=== PATIENT | male | born 1995 | race Caucasian/White ===

== ENCOUNTER 2024-08-15 17:51 | Emergency (ER) | payer BC, SELFPAY ==
--- NOTE | ~2024-08-15 | XR_ITS ---
CLINICAL HISTORY: shortness of breath 2 view chest x-ray Comparison: None provided Findings: Mild diffuse interstitial prominence in both lungs may represent pulmonary vascular congestion/ fluid overload. No focal consolidation, pleural effusion or pneumothorax. Heart size is normal. No acute fracture. IMPRESSION: Mild diffuse interstitial prominence in both lungs may represent pulmonary vascular congestion/ fluid overload. This document has been electronically signed by: Joya Daugherty MD on 08/15/2024 19:45:43
--- NOTE | ~2024-08-15 | CT_ITS ---
CLINICAL HISTORY: TAchy, SOB, recent scuba diving and flying CT angiography chest with contrast. 3D Postprocessing. Comparison: CT/SR - CT ABDOMEN PELVIS W IV CON - 08/16/24 01:17 EDT Findings: The heart size is normal. RV/LV ratio is normal. Unremarkable thoracic aorta and great vessels. No aneurysm. No acute pulmonary embolus. The visualized thyroid and mediastinum are unremarkable. Mild dependent atelectasis at the lung bases. No consolidation, effusion, or pneumothorax. Abdominal findings are discussed on the comparison. No acute fractures. No intravascular gas. Vacuum joint phenomenon left shoulder, expected with the patient's positioning. IMPRESSION: 1. No acute pulmonary embolus. 2. There are no findings that would be specific to decompression sickness on CT. This document has been electronically signed by: Nicole Polo MD on 08/16/2024 03:07:48
--- NOTE | ~2024-08-15 | CT_ITS ---
CLINICAL HISTORY: abdominal pain, diarreha, diffuse joint pain CT abdomen and pelvis with contrast Comparison: None provided Findings: Linear atelectasis at the lung bases. No consolidation or effusion. Hypodense liver. Right liver 21 cm. No portal venous gas. Pancolonic wall thickening. Mild pericolonic fat stranding most evident at the ascending colon. No pneumoperitoneum or pneumatosis. Mesenteric vessels patent. No intravascular gas. Normal appendix. Unremarkable urinary bladder. No ascites or hernia. The bones are intact. No gas in the hip joints or facet joints. IMPRESSION: 1. Lutz colitis of uncertain etiology. 2. Fatty hepatomegaly. 3. There are no findings specific to decompression sickness on CT. This document has been electronically signed by: Nicole Polo MD on 08/16/2024 03:06:04
[2024-08-15 18:15] VITALS: BP 123/101; PULSE 98; RESP 18; TEMP 37.4; O2SAT 100; BMI 37.4
--- NOTE | 2024-08-15 18:20 | ED_ITS ---
HPI - General Adult General Chief complaint: Dyspnea Stated complaint: Joint and muscle pain, sent from to R/O PE Time Seen by Provider: 08/15/24 22:59 Source: patient Mode of arrival: ambulatory Limitations: no limitations History of Present Illness ED Provider: Dr. Ria Casiano HPI narrative: Patient comes to the emergency room complaining of diffuse body pains, diarrhea. Patient states that yesterday he came back from [place]. Patient reports that he went scuba diving during this trip. Patient states that days prior to his flight, he went scuba diving. Patient states that most of his dives were between 60 ft and 120 ft. Patient reports that he did all the safety checks, the safety ascending rate. Also, patient states that he stayed at sea level to his family's house which is 3000 feet above sea level. Three days after the last time, patient got on the plane and flew from [place] to [place]. Patient states that since yesterday, he has been having diffuse aches and started with the diarrhea, no vomiting, no chest pain. Patient does report some shortness of breath with exertion. Patient states that earlier today he went to urgent care about 7 hours ago, and was told to come to the emergency room for further evaluation. Related Data Allergies Allergy/AdvReac Type Severity Reaction Status Date / Time No Known Allergies Allergy Verified 08/15/24 18:21 Review of Systems 2 Review of Systems: Constitutional : No Weight loss, No Fever, No Chills, No Night Sweats, No Fatigue, No Malaise ENT/Mouth : No Hearing loss, No Ear Pain, No Nasal Congestion, No Sinus Pain, No Hoarseness, No sore throat, No Rhinorrhea, No Swallowing Difficulty Eyes: No Eye Pain, No Swelling, No Redness, No Foreign Body, No Discharge, No Vision Changes Cardiovascular : No Chest Pain, No SOB, No Dyspnea on Exertion, No Orthopnea, No Edema, No Palpitations Respiratory : Denies cough or URI symptoms, complaining of shortness of breath with exertion Gastrointestinal : No Nausea, No Vomiting, complaining of Diarrhea, No Constipation, complaining of abdominal cramping with no significant abdominal Pain, No Hematochezia, No Melena Genitourinary : no irregular bleeding, No Dysuria, No Urinary Frequency, No Hematuria, No Urinary Incontinence, No Urgency, No Flank Pain, No Urinary Flow Changes, No Hesitancy Musculoskeletal : Diffuse body aches/shown pain, No Myalgias, No Joint Swelling Skin : No Skin Lesions, No rash Neuro : No Weakness, No Numbness, No Paresthesias, No Loss of Consciousness, No Dizziness, No Headache Psych : No Anxiety/Panic, No Depression, No SI/HI/AH/VH, No Social Issues, Heme/Lymph: No Bruising, No Bleeding,No Lymphadenopathy Endocrine : No Polyuria, No Polydipsia, No Temperature Intolerance PENDING SALE TO [facility] Social History Social History Smoked in Last 30 Days: Yes Use of substances other than those prescribed or required for medical reasons: No Advance Directives: No Advance Directives Information Provided: No Do you have a plan to hurt others: No Plan Physical Exam ED Vital Signs: Vital Signs - 24 hr 08/15/24 18:15 08/15/24 22:37 08/15/24 22:40 Temperature 99.4 F 99.1 F Pulse Rate 98 104 H 104 H Respiratory Rate 18 20 20 Blood Pressure 123/101 H 131/55 L 130/64 Pulse Oximetry 100 96 97 Oxygen Delivery Method Room Air Room Air Room Air 08/16/24 00:06 08/16/24 02:18 08/16/24 02:40 Temperature 100.2 F 98.5 F 98.5 F Pulse Rate 103 H 100 Respiratory Rate 20 18 Blood Pressure 135/76 131/71 Pulse Oximetry 98 93 Oxygen Delivery Method Room Air Room Air BMI result Body Mass Index 37.4 Const Other: Appearance: Alert. Oriented X3. No acute distress. Well-appearing Eyes: Pupils equal, round and reactive to light. ENT: Pharynx normal. Neck: Normal inspection. Neck supple. No lymph nodes noted. No crepitus CVS: Normal heart rate and rhythm. Pulses normal. Normal S1 and S2 Respiratory: No respiratory distress. Breath sounds normal. No Wheezing. No rales Abdomen: Soft and nontender. No rigidity. No distention. Skin: Skin warm and dry. Normal skin color. Normal skin turgor. Extremities: No lower extremity edema. No Lacerations. No Rash Neuro: Oriented X 3. No motor deficit. No sensory deficit. Moving all extremities. No slurred speech. CN 2 through 12 grossly intact Psych: calm, cooperative, normal affect Course Course Course Narrative: RME, this is a rapid medical exam performed by Chai Martinez please refer to primary provider for complete H&P- 29 year old male presents for evaluation of body aches, fevers. He recently returned from [place] where he went SCUBA diving. Plan for labs. He was sent in by urgent care to rule out PE. We will add on a D-dimer Medications Administered Discontinued Medications Generic Name Dose Route Start Last Admin Trade Name Vince PRN Reason Stop Dose Admin Acetaminophen 650 mg 08/15/24 23:56 08/15/24 23:59 Acetaminophen 325 Mg Tablet PO 08/15/24 23:57 650 mg ONCE ONE Administration Lactated Ringer's 1,000 mls @ 999 mls/hr 08/15/24 23:30 08/16/24 02:40 Lr IV 08/16/24 01:30 Infused .Q1H1M MARC Infusion Iohexol 85 ml 08/16/24 01:32 08/16/24 01:33 Iohexol 350 Mg/Ml 100 Ml Infus..Btl IV 08/16/24 01:33 85 ml ONCE ONE Administration Loperamide HCl 4 mg 08/15/24 23:22 08/15/24 23:49 Loperamide Hcl 2 Mg Capsule PO 08/15/24 23:23 4 mg ONCE ONE Administration Medical Decision Making Medical Decision Making [facility] Narrative: My interpretation of EKG: Sinus tachycardia, heart rate 108, no ST segment depression or elevation, nonspecific T-wave inversion in lead 3, QTC 428 My interpretation of labs: Patient's white blood cell count 21.6, hemoglobin hematocrit and platelets within normal limits. D-dimer negative at 207. No abnormality in patient's chemistry, lipase 13. Serology negative for influenza RSV and COVID. Troponin negative, BNP negative Chest x-ray shows mild diffuse interstitial prominence in both lungs, possible pulmonary vascular congestion versus fluid overload Overall, patient does have history of school I being 220 ft and then flying. However, over 72 hours elapsed between his last dive and flying which is more than enough time according to the scuba diving recommendations. Minimum time is 18 hours between the last scuba dive and flying. Patient also reports that after school driving, he waited a proximally 3 hours after ascending up to 3000 [place] where his family lives. Patient is complaining of abdominal cramping and diarrhea and subjective fevers. Patient's symptoms are most likely secondary to a viral/bacterial infection rather than decompression syndrome Given patient's history, symptoms, x-rays and presentation we will proceed with a chest CT in an abdominal CT. Patient receiving IV fluids and loperamide Please see paper chart for down time Overall CT of the chest negative for PE or any radiological finding consistent with decompression syndrome CT of the abdomen shows colitis Patient received p.o. metronidazole and levofloxacin Paper script given to the patient Lab Data 08/15/24 18:32 08/15/24 18:32 Labs: Lab Results 08/15/24 08/16/24 Range/Units 18:32 00:47 WBC 21.6 H (4.8-10.8) X10*3/uL RBC 4.75 (4.60-5.80) X10*6/uL Hgb 14.0 (14.0-18.0) g/dl Hct 43.1 (42.0-52.0) % MCV 90.7 (80.0-98.0) fL MCH 29.5 (27.0-33.0) pg MCHC 32.5 (31.0-36.0) g/dl RDW 13.5 (11.0-16.0) % Plt Count 271 (160-400) X10*3/uL MPV 10.5 (9.4-12.4) fL Immature Gran % (Auto) 0.6 H (0.0-0.4) % Neut % (Auto) 89.6 H (45-73) % Lymph % (Auto) 5.2 L (20-40) % [place] % (Auto) 4.2 (2-11) % Eos % (Auto) 0.0 (0-4) % Baso % (Auto) 0.4 (0-2) % Lymph # (Auto) 1.1 L (1.2-4.9) X10*3/uL [place] # (Auto) 0.9 (0.1-1.2) X10*3/uL Eos # (Auto) 0.0 (0.0-0.4) X10*3/uL Baso # (Auto) 0.1 (0.0-0.2) X10*3/uL Abs Immat Gran (auto) 0.13 H (0.00-0.03) X10*3/uL Absolute Neuts (auto) 19.3 H (2.0-8.3) x10*3/uL Absolute Nucleated RBC 0.000 (0.0-0.012) X10*3/uL Nucleated RBC % (auto) 0.0 (0.0-0.2) /100WBC D-Dimer High Sensitivty 207 NG/ML Sodium 139 (135-145) mmol/L Potassium 3.6 (3.3-5.1) mmol/L Chloride 107 (96-108) mmol/L Carbon Dioxide 22 (22-29) mmol/L Anion Gap 14 (12-20) BUN 11 (9-16) mg/dL Creatinine 0.95 (0.5-1.4) mg/dL Estim Creat Clear Calc 124.9 Estimated GFR > 60 Random Glucose 103 (60-115) mg/dL Calcium 9.4 (8.4-10.2) mg/dL Total Bilirubin 0.6 (0.0-1.0) mg/dL AST 32 (5-37) U/L ALT 95 H (0-40) U/L Alkaline Phosphatase 43 (39-117) U/L Troponin I High Sens < 2.7 (<3.5-35.0) ng/L B-Natriuretic Peptide 21 (<100) pg/mL Total Protein 7.4 (6.5-8.0) g/dL Albumin 4.8 (3.5-5.0) g/dL Lipase 13 (8-78) U/L Urine Color Yellow Urine Appearance Clear Urine pH 6.5 (5.0-9.0) Ur Specific [place] <= 1.005 (1.005-1.025) Urine Protein Negative (Neg-Trace) mg/dL Urine Glucose (UA) Negative (Negative) mg/dL Urine Ketones Negative (Negative) mg/dL Urine Blood Negative (Negative) Urine Nitrite Negative (Negative) Ur Leukocyte Esterase Negative (Negative) Urine RBC 0-2 (0-2) /HPF Urine WBC 0-5 (0-5) /HPF Ur Squamous Epith Cells 0-2 (0-2) /HPF Urine Bacteria None Seen (None Seen) Hyaline Casts 0-2 (0-2) /LPF Influenza Type A (PCR) NEGATIVE (Negative) Influenza Type B (PCR) NEGATIVE (Negative) RSV RNA Qual (PCR) NEGATIVE (Negative) SARS-CoV-2 RNA (RT-PCR) NEGATIVE (Negative) Critical Care Time Critical Care Time Critical Care Time: Yes Total Critical Care Time: 60 Attestation: I have personally provided critical care time. Time includes review of lab data, radiology results, discussion with consultants, and monitoring for potential decompensation. Intervention performed as documented. Discharge Plan Discharge Clinical Impression: Colitis Patient Disposition: Home, Self-Care Print Language: Afghan
--- NOTE | 2024-08-15 18:21 | ECG_ITS ---
Test Reason : PAIN Blood Pressure : */* mmHG Vent. Rate : 108 BPM Atrial Rate : 108 BPM P-R Int : 112 ms QRS Dur : 84 ms QT Int : 320 ms P-R-T Axes : 40 19 11 degrees QTcB Int : 428 ms Sinus tachycardia Otherwise normal ECG No previous ECGs available Referred By: Gagan Martinez Electronically Signed By: Dougie Iqbal
[2024-08-15 18:58] LABS: MANUAL DIFF FLAG NO
[2024-08-15 18:59] LABS: Basophils Absolute Auto 0.1 X10*3/uL (0.0-0.2); Basophils Percent Auto 0.4 % (0-2); Hematocrit 43.1 % (42.0-52.0); Imm Gran Abs Auto 0.13 X10*3/uL (0.00-0.03); Imm Gran Pct Auto 0.6 % (0.0-0.4); Lymphocytes Absolute Auto 1.1 X10*3/uL (1.2-4.9); Lymphocytes Percent Auto 5.2 % (20-40); Mean Corpuscular HGB Conc 32.5 g/dl (31.0-36.0); Mean Corpuscular Hemoglobin 29.5 pg (27.0-33.0); Mean Corpuscular Volume 90.7 fL (80.0-98.0); Mean Platelet Volume 10.5 fL (9.4-12.4); Monocytes Absolute Auto 0.9 X10*3/uL (0.1-1.2); Monocytes Percent Auto 4.2 % (2-11); Neutrophils Absolute Auto 19.3 x10*3/uL (2.0-8.3); Neutrophils Percent Auto 89.6 % (45-73); Platelet Count 271 X10*3/uL (160-400); Red Blood Count 4.75 X10*6/uL (4.60-5.80); Red Cell Distribution Width 13.5 % (11.0-16.0); White Blood Count 21.6 X10*3/uL (4.8-10.8)
[2024-08-15 19:07] LABS: D Dimer High Sensitivity 207 NG/ML
[2024-08-15 19:14] LABS: Alanine Aminotransferase 95 U/L (0-40); Albumin Level 4.8 g/dL (3.5-5.0); Alkaline Phosphatase 43 U/L (39-117); Anion Gap 14 (12-20); Aspartate Amino Transferase 32 U/L (5-37); Bilirubin Total 0.6 mg/dL (0.0-1.0); Blood Urea Nitrogen 11 mg/dL (9-16); Calcium 9.4 mg/dL (8.4-10.2); Carbon Dioxide 22 mmol/L (22-29); Chloride 107 mmol/L (96-108); Creatinine Clr Calc Pharmacy 124.9; Estimated Glomerular Filt Rate > 60; Glucose Random 103 mg/dL (60-115); Lipase 13 U/L (8-78); Potassium 3.6 mmol/L (3.3-5.1); Sodium 139 mmol/L (135-145); Total Protein 7.4 g/dL (6.5-8.0)
[2024-08-15 19:24] LABS: Troponin-I High Sensitivity < 2.7 ng/L (<3.5-35.0)
[2024-08-15 19:36] LABS: Influenza A PCR NEGATIVE (Negative); Influenza B PCR NEGATIVE (Negative); Resp Syncy Virus RNA Qual PCR NEGATIVE (Negative); SARS COV2 PCR INHOUSE NEGATIVE (Negative)
[2024-08-15 20:53] LABS: B Type Natriuretic Peptide 21 pg/mL (<100)
--- NOTE | 2024-08-15 22:27 | PC.NURSE ---
pt brought back, Iv placed.
[2024-08-15 22:37] VITALS: BP 131/55; PULSE 104; RESP 20; TEMP 37.3; O2SAT 96
[2024-08-15 22:40] VITALS: BP 130/64; PULSE 104; RESP 20; O2SAT 97
[2024-08-15] MEDS: Loperamide HCl 2 MG CAPSULE 4 MG PO (23:49)
[2024-08-15] MEDS: Lactated Ringers 1,000 ML 999 ML IV ×2 (23:50→23:55)
[2024-08-15] MEDS: Acetaminophen 325 MG TABLET 650 MG PO (23:59)
[2024-08-16 00:06] VITALS: BP 135/76; PULSE 103; RESP 20; TEMP 37.9; O2SAT 98
[2024-08-16 00:54] LABS: Appearance Urine Clear; Color Urine Yellow; Glucose Urine UA Negative (Negative); Leukocyte Esterase Urine Negative (Negative); Nitrite Urine Negative (Negative); PH 6.5 (5.0-9.0); Specific Gravity - Urine <= 1.005 (1.005-1.025); Urine Blood Negative (Negative); Urine Ketones Negative (Negative); Urine Protein Negative (Neg-Trace)
[2024-08-16 00:56] LABS: Bacteria Urine None Seen (None Seen); Hyaline Casts Urine 0-2 /LPF (0-2); RBC Urine 0-2 /HPF (0-2); Squamous Epithelial Cell Urine 0-2 /HPF (0-2); WBC Urine 0-5 /HPF (0-5)
[2024-08-16] MEDS: iohexoL 350 MG/ML 100 ML INFUS..BTL 85 ML IV (01:33)
--- NOTE | 2024-08-16 01:58 | PC.NURSE ---
pt oob to bathroom, pt taken to CT Scan, awaiting results.
[2024-08-16 02:18] VITALS: BP 131/71; PULSE 100; RESP 18; TEMP 36.9; O2SAT 93
[2024-08-16 02:40] VITALS: TEMP 36.9
[2024-08-16 06:20] VITALS: BP 138/77; PULSE 89; RESP 20; TEMP 36.9; O2SAT 98
--- NOTE | 2024-08-16 06:23 | PC.NURSE ---
Pt medicated during down time and discharge, [facility] paper work completed
[2024-08-17 14:03] LABS: Lyme Blot >10.00 index
[2024-08-19 14:02] LABS: 18 KD (IgG) Band REACTIVE; 23 KD (IgG) Band REACTIVE; 23 KD (IgM) Band REACTIVE; 28 KD (IgG) Band REACTIVE; 30 KD (IgG) Band NON-REACTIVE; 39 KD (IgM) Band NON-REACTIVE; 39KD (IgG) Band REACTIVE; 41 KD (IgM) Band NON-REACTIVE; 41KD (IgG) Band REACTIVE; 45 KD (IgG) Band NON-REACTIVE; 58 KD (IgG) Band REACTIVE; 66 KD (IgG) Band NON-REACTIVE; 93 KD (IgG) Band REACTIVE; Lyme Abs Screen POS; Lyme IgG Blot Interp POSITIVE (NEGATIVE); Lyme IgM Blot Interp NEGATIVE (NEGATIVE)
== END 2024-08-16 06:23 | disposition home or self-care (01) ==
PROVIDERS: Emergency Medicine; Physician Assistant; Emergency Provider Emergency Medicine; PCP Internal Medicine
DX: K52.9 Noninfective gastroenteritis and colitis, unspecified (principal); R06.02 Shortness of breath; R10.9 Unspecified abdominal pain; R50.9 Fever, unspecified; R00.0 Tachycardia, unspecified; Z03.818 Encounter for observation for suspected exposure to other biological agents ruled out
CPT/HCPCS: 0241U; 36415; 71046; 71275; 74177; 80053; 81001; 83690; 83880; 84484; 85025; 85379; 86617; 86618; 93005; 96360; 96361; 99285; J7120; Q9967

== ENCOUNTER → 2024-08-15 18:21 | Outpatient (BNV) | payer BC, SELFPAY | PROVIDERS: Emergency Provider Emergency Medicine; PCP Internal Medicine; Visit Provider Internal Medicine Cardiovascular Disease | DX: R00.0 Tachycardia, unspecified (principal) | CPT/HCPCS: 93010 ==

== ENCOUNTER → 2024-08-15 19:11 | Outpatient (BNV) | payer SELFPAY | PROVIDERS: PCP Internal Medicine; Visit Provider Student in an Organized Health Care Education/Training Program | DX: R06.02 Shortness of breath (principal) | CPT/HCPCS: 71046 ==

== ENCOUNTER → 2024-08-16 | Outpatient (BNV) | payer BC, SELFPAY | PROVIDERS: Emergency Provider Emergency Medicine; PCP Internal Medicine; Visit Provider Radiology Diagnostic Radiology | DX: R10.9 Unspecified abdominal pain (principal); J98.11 Atelectasis | CPT/HCPCS: 71275; 74177 ==